=== PATIENT | female | born 1965 | race Asian ===

== ENCOUNTER 2016-04-16 13:47 | Emergency (ER) | payer SELFPAY ==
[~2016-04-16] VITALS: Wt 63.5 kg
[~2016-04-16 13:47] MED LIST: FER325 PO
== END 2016-04-16 15:35 | disposition left against medical advice (07) ==
LOC: FTE 13:47
DX: Z53.21 Procedure and treatment not carried out due to patient leaving prior to being seen by health care provider (principal)

== ENCOUNTER 2017-03-10 23:50 | Inpatient (IN) | END 2017-03-14 14:15 | disposition home or self-care (01) | DRG 194 ==